=== PATIENT | male | born 1970 | race Caucasian/White ===

== ENCOUNTER 2019-09-19 14:42 | Emergency (ER) | payer SELFPAY ==
[2019-09-19] VITALS (7 sets, daily range): BP systolic 131–162; BP diastolic 86–102; PULSE 50–72; RESP 14–20; TEMP 36.8; O2SAT 97–100
--- NOTE | 2019-09-19 15:38 | DI.CT.S_ITS ---
PROCEDURE: CT HEAD/BRAIN WO CON INDICATIONS: DIZZY X 3 WEEKS TECHNIQUE: Noncontrast 4.5 mm thick angled axial sections acquired from the foramen magnum to the vertex, with coronal and sagittal reformats. For radiation dose reduction, the following was used: automated exposure control, adjustment of mA and/or kV according to patient size. COMPARISON: [facility], CT, HEAD WITHOUT CONTRAST, 12/19/2011, 16:29. FINDINGS: Image quality: Excellent. CSF spaces: Basal cisterns are patent. No extra-axial fluid collections. Ventricles are normal in size and shape. Brain: No midline shift. No intracranial masses or hemorrhage. Díaz-white matter interface is normal. Skull and face: Calvarium and visualized facial bones are intact, without suspicious lesions. Sinuses: Visualized sinuses and mastoids are clear. IMPRESSION: No CT evidence of acute intracranial pathology. Dictated by: Nolan Schwartz M.D. on 09/19/2019 at 15:57 Approved by: Nolan Schwartz M.D. on 09/19/2019 at 15:58
--- NOTE | 2019-09-19 15:43 | ED.DIZZY ---
HPI - Dizziness General Chief Complaint: Dizziness Stated Complaint: dizzy,feeling faint Time Seen by Provider: 09/19/19 14:55 Source: patient Mode of arrival: Ambulatory Limitations: no limitations History of Present Illness HPI Narrative: PATIENT IS A 49-year-old male who presents with dizziness ongoing for the last 3 weeks. He says every night when he lays down to go to bed and he turns over he gets extremely dizzy. He also says whenever he wakes up in the morning and stands up he is extremely dizzy and off balance. He is able to work he denies any nausea vomiting numbness tingling or weakness. He does say that his vision gets a little funny when this happens and his girlfriend see that his eyes shake. Today he said it was significantly worse. He denies any chest pain or heart palpitation MD complaint: dizziness and lightheadedness Timing: unsure Description: sense of movement Related Data Previous Rx's Medication Instructions Recorded meclizine 25 mg PO TID PRN #10 tab 09/19/19 Allergies Allergy/AdvReac Type Severity Reaction Status Date / Time clarithromycin [From BIAXIN] Allergy Unknown Verified 09/19/19 16:01 Review of Systems Review of Systems ROS Unobtainable: All systems reviewed & are unremarkable except as noted in HPI and below Constitutional Constitutional: Denies chills, Denies fever(s), Denies lethargy and Denies weakness Eyes Eyes: Reports as per HPI, Denies blurry vision and Denies diplopia ENT Ears, Nose, Mouth, and Throat: Denies change in voice, Reports dizziness, Denies neck pain and Denies sore throat Cardiovascular Cardiovascular: Denies chest pain, Denies irregular heart rhythm, Denies lightheadedness, Denies palpitations, Denies dyspnea, Denies dyspnea on exertion and Denies orthopnea Respiratory Respiratory: Denies cough, Denies dyspnea, Denies dyspnea on exertion and Denies wheezing Gastrointestinal Gastrointestinal: Denies abdominal pain, Denies change in bowel habits, Denies diarrhea, Denies nausea and Denies vomiting Musculoskeletal Musculoskeletal: Denies neck pain Integumentary/Breasts Skin/Breast: Denies pruritus, Denies erythema, Denies rash and Denies wounds Neurologic Neurologic: Reports dizziness and Denies weakness Endocrine Endocrine: Denies palpitations Allergic/Immunologic Allergic/Immunologic: Denies wheezing Patient History Medical History Tobacco abuse (Acute) Social History Smoking Status: Current every day smoker Smoking Status: Current every day smoker alcohol intake frequency: 3 or more drinks per day Exam Initial Vital Signs Initial Vital Signs: Vital Signs Temperature 98.2 F 09/19/19 14:45 Pulse Rate 72 09/19/19 14:45 Respiratory Rate 20 09/19/19 14:45 Blood Pressure 146/102 H 09/19/19 14:45 Pulse Oximetry 100 09/19/19 14:45 GENERAL: Well-appearing, well-nourished and in no acute distress. HEENT: Head atraumatic,EOMI, pupils reactive, no nystagmus face symmetric, moist mucous membranes CARDIOVASCULAR: Regular rate and rhythm without murmurs, rubs or gallops. RESPIRATORY: Breath sounds equal bilaterally, no wheezes rales or rhonchi. ABDOMEN: Soft, nontender. Normoactive bowel sounds all 4 quadrants. No guarding or rebound. EXTREMITIES: Normal range of motion, no clubbing or edema. Neurovascularly intact NEUROLOGICAL: Alert and oriented x4.Normal gait and speech. Cranial nerves II through XII grossly intact. Good haqyaf-lg-cslr, strength equal bilaterally, no dysarthria or aphasia, sensation in tact to soft touch bilaterally, no visual changes, no facial droop SKIN: Warm, dry, no laceration, no petechiae, no rashes or lesions. Scores NIH Stroke Scale Level of Conciousness: Alert, keenly responsive Ask month/age: Answers both questions correctly. Open/close eyes, close hand: Performs both tasks correctly Best gaze horizontal: Normal Visual suggs: No visual loss Facial palsy: Normal symetrical movement Left arm drift: No drift for full 10 sec Right arm drift: No drift for full 10 sec Left leg drift: No drift for full 10 sec Right leg drift: No drift for full 10 sec Limb ataxia: Absent Sensory on face/arms/legs: Normal, no sensory loss Best language: No aphasia, normal Dysarthria: Normal Extinction or inattention: No abnormality Total NIH Stroke scale score: 0 Course Orders Ordered: Discontinued Medications Sodium Chloride (Normal Saline 0.9%) 1,000 mls @ 1,000 mls/hr IV CONT JAMIE Last Infusion: 09/19/19 17:26 Dose: 0 mls/hr Documented by: Admin: 09/19/19 16:05 Dose: 1,000 mls/hr Documented by: SARAH Meclizine HCl (Antivert) 25 mg PO NOW ONE Stop: 09/19/19 15:38 Last Admin: 09/19/19 16:04 Dose: 25 mg Documented by: SARAH Vital Signs Vital signs: Vital Signs - 8 hr 09/19/19 14:45 Temperature 98.2 F Pulse Rate 72 Respiratory Rate 20 Blood Pressure 146/102 H Pulse Oximetry 100 MDM - Dizziness Lab Data Attestation: I reviewed the patient's lab results. Result diagrams: 09/19/19 15:00 09/19/19 15:00 Labs: Lab Results 09/19/19 09/19/19 Range/Units 15:00 15:00 WBC 8.5 (4.5-11.0) X10^3/uL RBC 5.00 (4.5-5.9) X10^6/uL Hgb 15.2 (13.5-17.5) g/dL Hct 44.8 (41-53) % MCV 89.6 (80-100) fL MCH 30.4 (26-34) PG MCHC 33.9 (30-36) % RDW 14.5 (11.6-14.8) % Plt Count 241 (150-400) X10^3/uL Neut % (Auto) 66.7 (50-75) % Lymph % (Auto) 21.4 L (25-40) % [place] % (Auto) 6.1 (3-14) % Eos % (Auto) 4.6 H (2-4) % Baso % (Auto) 1.2 (0-2) % Neut # (Auto) 5700 (7900-5378) /uL Lymph # (Auto) 1800 (3762-3660) /uL [place] # (Auto) 500 (0-900) /uL Eos # (Auto) 400 (0-450) /uL Baso # (Auto) 100 (0-100) /uL Sodium 137 (137-145) mmol/L Potassium 4.0 (3.4-5.1) mmol/L Chloride 105 (98-107) mmol/L Carbon Dioxide 25 (22-32) mmol/L BUN 15 (9-20) mg/dL Creatinine 1.18 (0.66-1.25) mg/dL Estimated GFR > 60.0 (>60) mL/min BUN/Creatinine Ratio 12.7 (6-22) Glucose 93 (70-100) mg/dL Calcium 10.1 (8.4-10.2) mg/dL Total Bilirubin 0.8 (0.2-1.3) mg/dL AST 28 (17-59) IU/L ALT 22 (<50) IU/L Alkaline Phosphatase 86 (38-126) U/L Troponin I < 0.012 (0.01-0.034) ng/mL Total Protein 8.0 (6.3-8.2) g/dL Albumin 4.7 (3.5-5.0) g/dL Globulin 3.3 (1.7-4.1) g/dL Albumin/Globulin Ratio 1.4 (1.0-2.8) Imaging Data CT scan - head: Radiologist's Impression: PROCEDURE: CT HEAD/BRAIN WO CON INDICATIONS: DIZZY X 3 WEEKS TECHNIQUE: Noncontrast 4.5 mm thick angled axial sections acquired from the foramen magnum to the vertex, with coronal and sagittal reformats. For radiation dose reduction, the following was used: automated exposure control, adjustment of mA and/or kV according to patient size. COMPARISON: [facility], CT, HEAD WITHOUT CONTRAST, 12/19/2011, 16:29. FINDINGS: Image quality: Excellent. CSF spaces: Basal cisterns are patent. No extra-axial fluid collections. Ventricles are normal in size and shape. Brain: No midline shift. No intracranial masses or hemorrhage. Díaz-white matter interface is normal. Skull and face: Calvarium and visualized facial bones are intact, without suspicious lesions. Sinuses: Visualized sinuses and mastoids are clear. IMPRESSION: No CT evidence of acute intracranial pathology. Dictated by: Nolan Schwartz M.D. on 09/19/2019 at 15:57 Approved by: Nolan Schwartz M.D. on 09/19/2019 at 15:58 ECG Data Attestation: I personally reviewed and interpreted this ECG as follows: Prior ECG tracings: available for review Interpretation: Normal sinus rhythm rate 70 p.r. interval [address] changes similar to previous MDM Narrative Medical decision making narrative: Patient is overall feeling much better after meclizine he is ambulatory with no difficulty. He says this is the best he has felt in weeks. His symptoms are consistent with vertigo, which are worse with movement better with being still. Discharge Plan Departure Patient Disposition: Home Clinical Impression: Vertigo Discharge Date/Time: 09/19/19 18:06 Instructions: DI for Vertigo Activity Restrictions/Additional Instructions: *You have been diagnosed with vertigo *What to do: Recommend resting and taking it easy. This should resolve on its own however you may need to see retail pos specialist. *Continue to take medications as directed Meclizine every 8 hours only if needed for dizziness this can cause drowsiness, do not work or drive while taking *Follow up with your primary care provider in 2-3 days *Return to ER if you should have worsening dizziness weakness numbness tingling visual changes or any new, worsening or concerning symptoms Prescriptions: New meclizine 25 mg tablet 25 mg PO TID PRN (Reason: dizziness) Qty: 10 RF: 0 Referrals: [facility] [Outside]
[2019-09-19 16:04] LABS: Add Manual Diff / Slide Review NO; Basophils Absolute Auto 100 /uL (0-100); Basophils Percent Auto 1.2 % (0-2); Eosinophils Absolute Auto 400 /uL (0-450); Eosinophils Percent Auto 4.6 % (2-4); Hematocrit 44.8 % (41-53); Hemoglobin 15.2 g/dL (13.5-17.5); Lymphocytes Absolute Auto 1800 /uL (1100-4500); Lymphocytes Percent Auto 21.4 % (25-40); Mean Corpuscular HGB Conc 33.9 % (30-36); Mean Corpuscular Hemoglobin 30.4 PG (26-34); Mean Corpuscular Volume 89.6 fL (80-100); Monocytes Absolute Auto 500 /uL (0-900); Monocytes Percent Auto 6.1 % (3-14); Neutrophils Absolute Auto 5700 /uL (1500-7000); Neutrophils Percent Auto 66.7 % (50-75); Platelet Count 241 X10^3/uL (150-400); Red Cell Distribution Width 14.5 % (11.6-14.8); White Blood Cell Count 8.5 X10^3/uL (4.5-11.0)
[2019-09-19] MEDS: MECLIZINE HCL 12.5 MG TABLET 25 MG PO (16:04)
[2019-09-19] MEDS: SODIUM CHLORIDE 0.9% 1,000 ML 1000 ML IV (16:05)
[2019-09-19 16:10] LABS: Alanine Aminotransferase 22 IU/L (<50); Albumin 4.7 g/dL (3.5-5.0); Albumin Globulin Ratio 1.4 (1.0-2.8); Alkaline Phosphatase 86 U/L (38-126); Aspartate Aminotransferase 28 IU/L (17-59); BUN Creatinine Ratio 12.7 (6-22); Bilirubin Total 0.8 mg/dL (0.2-1.3); Blood Urea Nitrogen 15 mg/dL (9-20); Calcium 10.1 mg/dL (8.4-10.2); Carbon Dioxide 25 mmol/L (22-32); Chloride 105 mmol/L (98-107); Estimated Glomerular Filt Rate > 60.0 mL/min (>60); Globulin 3.3 g/dL (1.7-4.1); Glucose 93 mg/dL (70-100); HEMOLYSIS < 15 (0-50); Sodium 137 mmol/L (137-145)
[2019-09-19 16:21] LABS: Troponin I < 0.012 ng/mL (0.01-0.034)
--- NOTE | 2019-09-19 17:37 | PC.NURSE ---
pt states he was lifting an 85lb bag for work and he sat it down and turned, then passed out. pt states he's has dizziness on and off for 3 weeks.
--- NOTE | 2019-09-19 17:42 | PC.NURSE ---
assisted Pt. with stand by ambulation trail. NO assisted devices needed. Pt. denies pain and dizziness. Pt, back in room, call light in reach. RN notified. O2 stat- 100% RA and Pulse at 48.
== END 2019-09-19 18:06 | disposition home or self-care (01) ==
PROVIDERS: Emergency Provider Emergency Medicine
DX: R42 Dizziness and giddiness (principal)
CPT/HCPCS: 36415; 70450; 80053; 84484; 85025; 93005; 96360; 99284; 99285

== ENCOUNTER 2020-04-13 16:01 | Emergency (ER) | payer SELFPAY ==
[2020-04-13 16:06] VITALS: BP 139/85; PULSE 86; RESP 16; TEMP 36.7; O2SAT 99; BMI 26.2
--- NOTE | 2020-04-13 16:20 | DI.RAD.S_ITS ---
PROCEDURE: XR LUMBAR SPINE 2-3V INDICATIONS: fall on ice on sat TECHNIQUE: 3 views of the lumbar spine were acquired. COMPARISON: None. FINDINGS: Bones: 5 [id number] vertebrae are present. There is normal bony alignment. No vertebral body compression fractures. No suspicious bony lesions. Degenerative disc disease is moderate at L4-5 and [id number] at L5-S1. Pars interarticularis defects are suspected at L5, and there is slight anterolisthesis of L5 on S1. Soft tissues: Overlying bowel gas pattern is normal. No suspicious soft tissue calcifications. IMPRESSION: No acute compression fracture found. 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 The anterolisthesis of L5 on S1 likely is related to the pars defects. Spinal and foraminal stenosis at L4-5 and L5-S1 may be present related to both degeneration and the pars defects. Elective follow-up orthopedic consultation may be warranted. Dictated by: Shantanu Alfredo M.D. on 04/13/2020 at 16:46 Approved by: Shantanu Alfredo M.D. on 04/13/2020 at 16:47
[2020-04-13 17:34] VITALS: BP 126/86; PULSE 64; O2SAT 98
--- NOTE | 2020-04-13 19:20 | ED_ITS ---
HPI - Back Pain/Injury General Chief Complaint: Back Pain/Injury Stated Complaint: BACK PAIN Time Seen by Provider: 04/13/20 18:57 Source: patient Mode of arrival: Ambulatory Limitations: no limitations History of Present Illness HPI Narrative: 49-year-old male who approximately 1 week ago fell on ice landing on the right side of his back. He states that he had no other injuries from the event. He thought that potentially his symptoms were improving however they have continued and actually worsened this morning. He states that it hurts on his right flank especially when he coughs. Tract him ibuprofen at home with minimal improvement. Related Data Previous Rx's Medication Instructions Recorded meclizine 25 mg PO TID PRN #10 tab 09/19/19 cyclobenzaprine 10 mg PO TID PRN #14 tab 04/13/20 hydrocodone-acetaminophen [[place]] 1 tab PO Q4-6H PRN #10 tab 04/13/20 Allergies Allergy/AdvReac Type Severity Reaction Status Date / Time clarithromycin [From BIAXIN] Allergy Unknown Verified 04/13/20 16:08 Review of Systems Constitutional Constitutional: Denies fatigue and Denies headache(s) ENT Ears, Nose, Mouth, and Throat: Denies headache(s) and Denies neck pain Cardiovascular Cardiovascular: Denies chest pain and Denies dyspnea Respiratory Respiratory: Denies dyspnea Gastrointestinal Gastrointestinal: Denies abdominal pain, Denies nausea and Denies vomiting Musculoskeletal Musculoskeletal: Reports back pain and Denies neck pain Integumentary/Breasts Skin/Breast: Denies lesions and Denies rash Neurologic Neurologic: Denies behavioral changes and Denies headache(s) Psychiatric Psychiatric: Denies behavioral changes Endocrine Endocrine: Denies fatigue Hematologic/Lymphatic On Anticoagulants: No Allergic/Immunologic Allergic/Immunologic: Denies urticaria Patient History Medical History Tobacco abuse Social History Smoking Status: Current every day smoker Smoking Status: Current every day smoker alcohol intake frequency: 3 or more drinks per day Substance Use Type: marijuana Exam Initial Vital Signs Initial Vital Signs: Vital Signs Temperature 98.1 F 04/13/20 16:06 Pulse Rate 86 04/13/20 16:06 Respiratory Rate 16 04/13/20 16:06 Blood Pressure 139/85 04/13/20 16:06 Pulse Oximetry 99 04/13/20 16:06 Const General: cooperative and comfortable Limitations: mental status not altered HENMT Head: normal to inspection and normocephalic Chest Chest: No crepitus and No tenderness Resp Effort & Inspection: normal respiratory effort Auscultation: clear to auscultation bilaterally Cardio Rate: regular rate GI Inspection: non-distended Palpation: No soft Back/Spine/Pelvis Cervical Spine: No cervical spinal tenderness Thoracic/Lumbar Spine: paraspinal tenderness (Right-sided lumbar/paraspinal and lower ribs), No thoracic spinal tenderness and No lumbar spinal tenderness Skin Lesions: no lesions Rashes: no rashes Neuro General: patient alert and patient awake Cognition: normal cognition Speech: speech normal Extrem General: capillary refill normal Psych Appearance: grossly normal and well kempt Course Orders Ordered: Discontinued Medications Hydromorphone HCl (Hydromorphone 1 Mg Inj) 1 mg IM NOW ONE Stop: 04/13/20 19:21 Last Admin: 04/13/20 19:26 Dose: 1 mg Documented by: ANGLE Ketorolac Tromethamine (Ketorolac 60 Mg/2 Ml Vial) 30 mg IM NOW ONE Stop: 04/13/20 19:21 Last Admin: 04/13/20 19:25 Dose: 30 mg Documented by: ANGLE Vital Signs Vital signs: Vital Signs - 8 hr 04/13/20 19:37 Pulse Rate 64 Respiratory Rate 16 Blood Pressure 143/87 H Pulse Oximetry 98 MDM - Back Pain/Injury Imaging Data Lumbar spine x-ray: Radiologist's Impression: [address] [id number] ReportSigned Patient: Yury Lopez JR JMR#: [id number]: 1970Acct:[id number]/Sex: 49 / MDate of Service: 04/13/20Loc: EDAccessio n Number: [id number] Procedure: XR lumbar spine 2-3V Ordering Provider: Savannah Lovelace D.O. PROCEDURE: XR LUMBAR SPINE 2-3V INDICATIONS: fall on ice on sat TECHNIQUE: 3 views of the lumbar spine were acquired. COMPARISON: None. FINDINGS: Bones: 5 [id number]-jrf-gyywdoo vertebrae are present. There is normal bony alignment. No vertebral body compression fractures. No suspicious bony lesions. Degenerative disc disease is moderate at L4-5 and asoq-af-yncjmrik at L5-S1. Pars interarticularis defects are suspected at L5, and there is slight anterolisthesis of L5 on S1. Soft tissues: Overlying bowel gas pattern is normal. No suspicious soft tissue calcifications. IMPRESSION: No acute compression fracture found. 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 The anterolisthesis of L5 on S1 likely is related to the pars defects. Spinal and foraminal stenosis at L4-5 and L5-S1 may be present related to both degeneration and the pars defects. Elective follow-up orthopedic consultation may be warranted. Dictated by: Shantanu Alfredo M.D. on 04/13/2020 at 16:46 Approved by: Shantanu Alfredo M.D. on 04/13/2020 at 16:47 [facility] Narrative Medical decision making narrative: Lumbar spine x-rays are negative however the patient's symptoms are right-sided paraspinal and over the 11th and 12th ribs. I suspect this is a musculoskeletal etiology. He potentially could have rib fractures. He is not in respiratory distress and his lungs are clear bilateral. I feel we can hold on a chest x-ray. Discussed the symptoms with him. We did discuss rib fractures versus bruised ribs. He has no abdominal tenderness. He has 1 week out from the injury. Feel we can hold on a CT scan his abdomen for now. He was given return precautions and follow-up instructions. He expressed understanding and agreement. Discharge Plan Departure Patient Disposition: Home Clinical Impression: Right-sided thoracic back pain, Rib pain on right side Instructions: DI for Rib Fracture, DI for Muscle Strain Activity Restrictions/Additional Instructions: Based on your exam today I suspect that you have a combination of both muscle spasms and also a bruised/fractured rib. Take the medication as directed. Unfortunately bruise/fractured ribs are very uncomfortable even with movement and breathing. You can put pressure over this area if you have to cough is this may help some of your symptoms. Return to the emergency department for any new or worsening symptoms. Recommend you contact the health water resource engineering specialist [phone]. This individual can help you establish a primary doctor here in the area. Prescriptions: New cyclobenzaprine 10 mg tablet 10 mg PO TID PRN (Reason: muscle spasm) Qty: 14 RF: 0 hydrocodone-acetaminophen [[place]] 5-325 mg tablet 1 tab PO Q4-6H PRN (Reason: pain) Qty: 10 RF: 0 No Action meclizine 25 mg tablet 25 mg PO TID PRN (Reason: dizziness) Qty: 10 RF: 0
[2020-04-13] MEDS: KETOROLAC 60 MG/2 ML VIAL 30 MG IM (19:25)
[2020-04-13] MEDS: HYDROMORPHONE 1 MG INJ IM (19:26)
[2020-04-13 19:37] VITALS: BP 143/87; PULSE 64; RESP 16; O2SAT 98
== END 2020-04-13 19:38 | disposition home or self-care (01) ==
PROVIDERS: Emergency Provider Emergency Medicine
DX: M54.6 Pain in thoracic spine (principal); R07.81 Pleurodynia; W00.0XXA Fall on same level due to ice and snow, initial encounter
CPT/HCPCS: 72100; 96372; 99281; 99283; J1170; J1885

== ENCOUNTER → 2020-06-15 16:52 | Outpatient (CLI) | payer OTHER, SELFPAY ==
[2020-06-15 17:20] LABS: COVID19 -Nasal RAPID Negative (Negative)
== END ==
PROVIDERS: Visit Provider Physician Assistant
DX: Z20.822 Contact with and (suspected) exposure to COVID-19 (principal)
CPT/HCPCS: 87635

== ENCOUNTER → 2020-06-15 17:14 | Outpatient (CLI) | payer SELFPAY ==
[2020-06-15 17:36] LABS: Add Manual Diff / Slide Review NO; Basophils Absolute Auto 100 /uL (0-100); Basophils Percent Auto 0.8 % (0-2); Eosinophils Absolute Auto 300 /uL (0-450); Eosinophils Percent Auto 4.1 % (2-4); Hematocrit 44.2 % (41-53); Hemoglobin 14.9 g/dL (13.5-17.5); Lymphocytes Absolute Auto 1400 /uL (1100-4500); Lymphocytes Percent Auto 18.9 % (25-40); Mean Corpuscular HGB Conc 33.7 % (30-36); Mean Corpuscular Hemoglobin 30.9 PG (26-34); Mean Corpuscular Volume 91.7 fL (80-100); Monocytes Absolute Auto 400 /uL (0-900); Monocytes Percent Auto 5.8 % (3-14); Neutrophils Absolute Auto 5300 /uL (1500-7000); Neutrophils Percent Auto 70.4 % (50-75); Platelet Count 211 X10^3/uL (150-400); Red Blood Cell Count 4.82 X10^6/uL (4.5-5.9); Red Cell Distribution Width 13.9 % (11.6-14.8); White Blood Cell Count 7.6 X10^3/uL (4.5-11.0)
[2020-06-15 17:49] LABS: Alanine Aminotransferase 23 IU/L (<50); Albumin 4.2 g/dL (3.5-5.0); Albumin Globulin Ratio 1.3 (1.0-2.8); Alkaline Phosphatase 80 U/L (38-126); Aspartate Aminotransferase 23 IU/L (17-59); BUN Creatinine Ratio 13.9 (6-22); Bilirubin Total 0.4 mg/dL (0.2-1.3); Blood Urea Nitrogen 15 mg/dL (9-20); Calcium 9.5 mg/dL (8.4-10.2); Carbon Dioxide 28 mmol/L (22-32); Chloride 105 mmol/L (98-107); Estimated Glomerular Filt Rate > 60.0 mL/min (>60); Globulin 3.2 g/dL (1.7-4.1); Glucose 104 mg/dL (70-100); HEMOLYSIS < 15 (0-50); Lipase 92 U/L (23-300); Potassium 4.1 mmol/L (3.4-5.1); Sodium 139 mmol/L (137-145); Total Protein 7.4 g/dL (6.3-8.2)
== END ==
PROVIDERS: Referring Provider Physician Assistant; Visit Provider Physician Assistant
DX: R19.7 Diarrhea, unspecified (principal)
CPT/HCPCS: 36415; 80053; 83690; 85025

== ENCOUNTER → 2020-10-08 14:00 | Outpatient (CLI) | payer BC, SELFPAY ==
[2020-10-08 14:25] LABS: COVID19 -Nasal RAPID Negative (Negative)
== END ==
PROVIDERS: Visit Provider Physician Assistant
DX: R11.2 Nausea with vomiting, unspecified (principal); R19.7 Diarrhea, unspecified; R50.9 Fever, unspecified; Z20.822 Contact with and (suspected) exposure to COVID-19
CPT/HCPCS: 87635

== ENCOUNTER 2020-12-31 14:15 | Emergency (ER) | payer BC, SELFPAY ==
[2020-12-31] VITALS (8 sets, daily range): BP systolic 143–159; BP diastolic 90–103; PULSE 70–92; RESP 16–17; TEMP 36.9; O2SAT 94–100; BMI 21.2
--- NOTE | 2020-12-31 14:25 | PC.NURSE ---
Patient reports pressure/pain in left ear
[2020-12-31] MEDS: SODIUM CHLORIDE 0.9% 1,000 ML 1000 ML IV (14:40)
[2020-12-31] MEDS: ONDANSETRON 4 MG/2 ML INJ IV (14:40)
[2020-12-31 14:46] LABS: Add Manual Diff / Slide Review NO; Basophils Absolute Auto 100 /uL (0-100); Basophils Percent Auto 0.8 % (0-2); Eosinophils Absolute Auto 300 /uL (0-450); Eosinophils Percent Auto 3.7 % (2-4); Hematocrit 45.7 % (41-53); Hemoglobin 15.2 g/dL (13.5-17.5); Lymphocytes Absolute Auto 1500 /uL (1100-4500); Lymphocytes Percent Auto 19.7 % (25-40); Mean Corpuscular HGB Conc 33.2 % (30-36); Mean Corpuscular Hemoglobin 30.5 PG (26-34); Mean Corpuscular Volume 91.8 fL (80-100); Monocytes Absolute Auto 300 /uL (0-900); Monocytes Percent Auto 4.6 % (3-14); Neutrophils Absolute Auto 5400 /uL (1500-7000); Neutrophils Percent Auto 71.2 % (50-75); Platelet Count 215 X10^3/uL (150-400); Red Blood Cell Count 4.98 X10^6/uL (4.5-5.9); Red Cell Distribution Width 14.3 % (11.6-14.8); White Blood Cell Count 7.6 X10^3/uL (4.5-11.0)
[2020-12-31 14:51] LABS: Alanine Aminotransferase 27 IU/L (<50); Albumin 4.6 g/dL (3.5-5.0); Albumin Globulin Ratio 1.4 (1.0-2.8); Alkaline Phosphatase 73 U/L (38-126); Aspartate Aminotransferase 27 IU/L (17-59); BUN Creatinine Ratio 13.9 (6-22); Bilirubin Total 0.6 mg/dL (0.2-1.3); Blood Urea Nitrogen 15 mg/dL (9-20); Calcium 9.2 mg/dL (8.4-10.2); Carbon Dioxide 22 mmol/L (22-32); Chloride 105 mmol/L (98-107); Estimated Glomerular Filt Rate > 60.0 mL/min (>60); Globulin 3.3 g/dL (1.7-4.1); Glucose 152 mg/dL (70-100); HEMOLYSIS 26 (0-50); Sodium 138 mmol/L (137-145); Total Protein 7.9 g/dL (6.3-8.2)
--- NOTE | 2020-12-31 15:00 | DI.RAD.S_ITS ---
PROCEDURE: XR CHEST 2V INDICATIONS: Dizziness, fever, chills TECHNIQUE: 2 views of the chest were acquired. COMPARISON: [facility], , CHEST 1 VIEW, 01/03/2015, 15:47. FINDINGS: Surgical changes and devices: None. Lungs and pleura: Lungs are clear. No pleural effusions or pneumothorax. Mediastinum: Mediastinal contours are normal. Heart size is normal. Bones and chest wall: No suspicious bony abnormalities. Soft tissues appear unremarkable. IMPRESSION: No acute disease. Dictated by: Skip Mancini M.D. on 12/31/2020 at 16:34 Approved by: Skip Mancini M.D. on 12/31/2020 at 16:40
[2020-12-31 15:03] LABS: Troponin I < 0.012 ng/mL (0.01-0.034)
--- NOTE | 2020-12-31 15:03 | ED_ITS ---
HPI - Dizziness <Randolph Hernandez PA-C - Last Filed: 12/31/20 16:54> General Chief Complaint: Dizziness Stated Complaint: Dizzy, nausea x 3 days Time Seen by Provider: 12/31/20 14:24 Source: patient Mode of arrival: Ambulatory History of Present Illness HPI Narrative: 50-year-old male with no reported past medical history presents to the ED with 3 days of dizziness, nausea, vomiting. Patient states that he started feeling sick with fever, chills, nausea, vomiting, dizziness. Patient describes the dizziness as the room swelling around him, provoked by movement. Patient denies chest pain, shortness of breath, cough, abdominal pain, dysuria, syncope. Patient is unvaccinated for COVID-19. Patient endorses similar symptoms once 2 years ago, which was diagnosed as vertigo, resolved after taking vertigo medications. Related Data Previous Rx's Medication Instructions Recorded meclizine 12.5 mg tablet 25 mg PO TID PRN 7 Days tab 12/31/20 sulfamethoxazole 800 1 tab PO BID 5 Days #10 tab 12/31/20 mg-trimethoprim 160 mg tablet (Bactrim DS) Allergies Allergy/AdvReac Type Severity Reaction Status Date / Time clarithromycin [From BIAXIN] Allergy Mild Rash Verified 12/31/20 14:30 Review of Systems <Randolph Hernandez PA-C - Last Filed: 12/31/20 16:54> Constitutional Constitutional: Reports chills, Denies fatigue, Reports fever(s), Denies frequent falls, Denies lethargy and Denies weakness Eyes Eyes: Denies change in vision, Denies eye discharge, Denies irritation and Denies loss of vision ENT Ears, Nose, Mouth, and Throat: Denies change in voice, Reports dizziness, Denies neck pain, Denies sore throat and Denies throat swelling Cardiovascular Cardiovascular: Denies chest pain, Denies irregular heart rhythm, Denies lightheadedness, Denies palpitations, Denies dyspnea, Denies dyspnea on exertion and Denies orthopnea Respiratory Respiratory: Denies cough, Denies dyspnea, Denies dyspnea on exertion and Denies wheezing Gastrointestinal Gastrointestinal: Denies abdominal pain, Denies change in bowel habits, Denies diarrhea, Reports nausea and Reports vomiting Musculoskeletal Musculoskeletal: Denies neck pain and Denies numbness Integumentary/Breasts Skin/Breast: Denies pruritus, Denies erythema, Denies rash and Denies wounds Neurologic Neurologic: Denies behavioral changes, Denies confusion, Reports dizziness, Denies frequent falls, Denies loss of vision, Denies numbness and Denies weakness Psychiatric Psychiatric: Denies anxiety, Denies behavioral changes, Denies confusion, Denies depression, Denies homicidal ideation and Denies suicidal ideation Endocrine Endocrine: Denies fatigue, Denies flushing and Denies palpitations Hematologic/Lymphatic Hematologic/Lymphatic: Denies easy bruising Allergic/Immunologic Allergic/Immunologic: Denies urticaria, Denies throat swelling and Denies wheezing Patient History <Randolph Hernandez PA-C - Last Filed: 12/31/20 16:54> Medical History Normal exam Tobacco abuse Social History Smoking Status: Current every day smoker Smoking Status: Current every day smoker alcohol intake frequency: 3 or more drinks per day Substance Use Type: marijuana Exam <Randolph Hernandez PA-C - Last Filed: 12/31/20 16:54> Narrative Exam Narrative: Physical exam benign. Lungs bilaterally clear to auscultation. Regular rate and rhythm. Abdomen soft, nondistended, nontender to palpation. No CVA tenderness. PERRLA. CN 1 through 12 intact. Gait normal. Negative pronator drift, negative rapid alternating movements, negative [id number]. Patient is neurologically intact. Initial Vital Signs Initial Vital Signs: Vital Signs Temperature 98.5 F 12/31/20 14:25 Pulse Rate 92 H 12/31/20 14:25 Respiratory Rate 17 12/31/20 14:25 Blood Pressure 159/103 H 12/31/20 14:25 Pulse Oximetry 99 12/31/20 14:25 Const General: cooperative HENMT Head: normocephalic and atraumatic Ears: external ears normal and TM's normal bilaterally Nose: external nose normal and No nasal discharge Face and sinus: sinuses nontender, face symmetric, no sinus tenderness and No dry mucous membranes Mouth: oral mucosae normal and moist mucous membranes Teeth and gingiva: dentition normal Throat: tonsils normal and uvula midline Eyes General: appearance normal, both eyes and all related structures Eyelids: eyelids normal Conjunctivae: conjunctivae normal Sclera: sclerae normal Pupils: PERRL EOM: EOM intact bilaterally Neck Neck: normal visual inspection, trachea midline, No lymphadenopathy, No midline deformity and No JVD Lymphatic: No lymphedema Chest Chest: normal inspection of the chest Resp Effort & Inspection: normal respiratory effort, able to speak in complete sentences, no respiratory distress and no use of accessory muscles Auscultation: clear to auscultation bilaterally, no rales, no rhonchi and no wh eezes Cardio Rate: regular rate Rhythm: regular rhythm Heart Sounds: no click, no gallops, no murmurs and no rubs Pulses: normal peripheral pulses GI Inspection: non-distended Palpation: soft, no hepatosplenomegaly, No guarding, No pulsatile mass and No tender Auscultation: normal bowel sounds Back/Spine/Pelvis Back: No CVA tenderness Cervical Spine: cervical ROM normal and No pain with cervical ROM Thoracic/Lumbar Spine: thoracic and lumbar spine normal to inspection Skin General: no rashes or lesions noted, No jaundice and No petechiae Neuro General: patient alert, patient oriented x3, gait normal and no focal motor deficits Speech: speech normal Extrem General: full ROM, no clubbing, cyanosis or edema, no pedal edema and no calf tenderness Psych Appearance: well kempt Mental Status: mental status grossly normal Attitude: cooperative Thought Content: normal and suicidality Judgment: judgment good <Bret Patel MD - Last Filed: 12/31/20 17:37> Initial Vital Signs Initial Vital Signs: Vital Signs Temperature 98.5 F 12/31/20 14:25 Pulse Rate 92 H 12/31/20 14:25 Respiratory Rate 17 12/31/20 14:25 Blood Pressure 159/103 H 12/31/20 14:25 Pulse Oximetry 99 12/31/20 14:25 Course <Randolph Hernandez PA-C - Last Filed: 12/31/20 16:54> Course Course Narrative: Patient's workup negative for any acute conditions. Patient's symptoms likely due to peripheral vertigo versus viral infection. Patient's symptoms improved with meclizine. Will discharge patient home with ED return precautions, prescription for meclizine. Orders Ordered: ED Orders 12/31/20 14:30 COVID19 -Nasal swab/Pre-Proc Stat Complete Blood Count AUTO DIFF Stat Comprehensive Metabolic Panel Stat Troponin I Stat EKG-12 Lead Stat 12/31/20 15:00 XR chest 2V Stat Discontinued Medications Sodium Chloride (Normal Saline 0.9%) 1,000 mls @ 1,000 mls/hr IV BOLUS ONE Stop: 12/31/20 15:31 Last Infusion: 12/31/20 16:28 Dose: 0 mls/hr Documented by: Admin: 12/31/20 14:40 Dose: 1,000 mls/hr Documented by: RONAK Meclizine HCl (Meclizine Hcl 12.5 Mg Tablet) 25 mg PO NOW ONE Stop: 12/31/20 15:01 Last Admin: 12/31/20 15:04 Dose: 25 mg Documented by: BEBETO Ondansetron HCl (Ondansetron 4 Mg/2 Ml Inj) 4 mg IV NOW ONE Stop: 12/31/20 14:33 Last Admin: 12/31/20 14:40 Dose: 4 mg Documented by: RONAK Vital Signs Vital signs: Vital Signs - 8 hr 12/31/20 14:25 12/31/20 14:48 12/31/20 15:00 Temperature 98.5 F Pulse Rate 92 H 87 88 Respiratory Rate 17 Blood Pressure 159/103 H 143/94 H Pulse Oximetry 99 94 99 12/31/20 15:30 12/31/20 16:00 12/31/20 16:27 Temperature Pulse Rate 76 71 70 Respiratory Rate Blood Pressure 152/93 H 156/92 H Pulse Oximetry 99 97 100 12/31/20 16:29 12/31/20 16:30 Temperature Pulse Rate 72 80 Respiratory Rate 16 Blood Pressure 149/90 H Pulse Oximetry 100 98 <Bret Patel MD - Last Filed: 12/31/20 17:37> Orders Ordered: ED Orders 12/31/20 14:30 COVID19 -Nasal swab/Pre-Proc Stat Complete Blood Count AUTO DIFF Stat Comprehensive Metabolic Panel Stat Troponin I Stat EKG-12 Lead Stat 12/31/20 15:00 XR chest 2V Stat Discontinued Medications Sodium Chloride (Normal Saline 0.9%) 1,000 mls @ 1,000 mls/hr IV BOLUS ONE Stop: 12/31/20 15:31 Last Infusion: 12/31/20 16:28 Dose: 0 mls/hr Documented by: Admin: 12/31/20 14:40 Dose: 1,000 mls/hr Documented by: RONAK Meclizine HCl (Meclizine Hcl 12.5 Mg Tablet) 25 mg PO NOW ONE Stop: 12/31/20 15:01 Last Admin: 12/31/20 15:04 Dose: 25 mg Documented by: BEBETO Ondansetron HCl (Ondansetron 4 Mg/2 Ml Inj) 4 mg IV NOW ONE Stop: 12/31/20 14:33 Last Admin: 12/31/20 14:40 Dose: 4 mg Documented by: RONAK Vital Signs Vital signs: Vital Signs - 8 hr 12/31/20 14:25 12/31/20 14:48 12/31/20 15:00 Temperature 98.5 F Pulse Rate 92 H 87 88 Respiratory Rate 17 Blood Pressure 159/103 H 143/94 H Pulse Oximetry 99 94 99 12/31/20 15:30 12/31/20 16:00 12/31/20 16:27 Temperature Pulse Rate 76 71 70 Respiratory Rate Blood Pressure 152/93 H 156/92 H Pulse Oximetry 99 97 100 12/31/20 16:29 12/31/20 16:30 Temperature Pulse Rate 72 80 Respiratory Rate 16 Blood Pressure 149/90 H Pulse Oximetry 100 98 MDM - Dizziness <Randolph Hernandez PA-C - Last Filed: 12/31/20 16:54> Lab Data Lab results narrative: Labs within normal limits Result diagrams: 12/31/20 14:30 12/31/20 14:30 Labs: Lab Results 12/31/20 12/31/20 12/31/20 Range/Units 14:30 14:30 14:30 WBC 7.6 (4.5-11.0) X10^3/uL RBC 4.98 (4.5-5.9) X10^6/uL Hgb 15.2 (13.5-17.5) g/dL Hct 45.7 (41-53) % MCV 91.8 (80-100) fL MCH 30.5 (26-34) PG MCHC 33.2 (30-36) % RDW 14.3 (11.6-14.8) % Plt Count 215 (150-400) X10^3/uL Neut % (Auto) 71.2 (50-75) % Lymph % (Auto) 19.7 L (25-40) % Payne % (Auto) 4.6 (3-14) % Eos % (Auto) 3.7 (2-4) % Baso % (Auto) 0.8 (0-2) % Neut # (Auto) 5400 (6073-3581) /uL Lymph # (Auto) 1500 (6229-2772) /uL Payne # (Auto) 300 (0-900) /uL Eos # (Auto) 300 (0-450) /uL Baso # (Auto) 100 (0-100) /uL Sodium 138 (137-145) mmol/L Potassium 4.0 (3.4-5.1) mmol/L Chloride 105 (98-107) mmol/L Carbon Dioxide 22 (22-32) mmol/L BUN 15 (9-20) mg/dL Creatinine 1.08 (0.66-1.25) mg/dL Estimated GFR > 60.0 (>60) mL/min BUN/Creatinine Ratio 13.9 (6-22) Glucose 152 H (70-100) mg/dL Calcium 9.2 (8.4-10.2) mg/dL Total Bilirubin 0.6 (0.2-1.3) mg/dL AST 27 (17-59) IU/L ALT 27 (<50) IU/L Alkaline Phosphatase 73 (38-126) U/L Troponin I < 0.012 (0.01-0.034) ng/mL Total Protein 7.9 (6.3-8.2) g/dL Albumin 4.6 (3.5-5.0) g/dL Globulin 3.3 (1.7-4.1) g/dL Albumin/Globulin Ratio 1.4 (1.0-2.8) SARS-CoV-2 (PCR) Negative (Negative) Urine Dip Bedside Urine Glucose Negative Bedside Urine Bilirubin - Negative Bedside Urine Ketone - Negative Urine Specific [place] 1.020 Bedside Urine Occult Blood - Negative Bedside Urine pH 6.5 Bedside Urine Protein - Negative Bedside Urine Urobilinogen - Negative Bedside Urine Nitrite - Negative Bedside Urine Leukocytes - Negative Esterase Imaging Data Chest x-ray: Radiologist's Impression: PROCEDURE:? XR CHEST 2V ? INDICATIONS:? Dizziness, fever, chills ? TECHNIQUE:? 2 views of the chest were acquired.? ? COMPARISON:? [facility], CR, CHEST 1 VIEW, 01/03/2015, 15:47. ? FINDINGS:? ? Surgical changes and devices:? None.? ? Lungs and pleura:? Lungs are clear.? No pleural effusions or pneumothorax.? ? Mediastinum:? Mediastinal contours are normal.? Heart size is normal.? ? Bones and chest wall:? No suspicious bony abnormalities.? Soft tissues appear unremarkable.? ? IMPRESSION:? No acute disease. ? ? Dictated by: Skip Mancini M.D. on 12/31/2020 at 16:34 ? ? Approved by: Skip Mancini M.D. on 12/31/2020 at 16:40 ? ECG Data Interpretation: Normal sinus rhythm with sinus arrhythmia. No acute ST-T changes. No axis deviation. MDM Narrative Medical decision making narrative: 50-year-old male with no reported past medical history presents to the ED with 3 days of dizziness, nausea, vomiting. Concern for ACS versus arrhythmia versus peripheral vertigo versus dehydration versus viral syndrome. Will order labs, chest x-ray, UA, EKG, troponin. Will give Zofran, meclizine, IV fluids with symptoms. Will reassess. <Bret Patel MD - Last Filed: 12/31/20 17:37> Lab Data Labs: Lab Results 12/31/20 12/31/20 12/31/20 Range/Units 14:30 14:30 14:30 WBC 7.6 (4.5-11.0) X10^3/uL RBC 4.98 (4.5-5.9) X10^6/uL Hgb 15.2 (13.5-17.5) g/dL Hct 45.7 (41-53) % MCV 91.8 (80-100) fL MCH 30.5 (26-34) PG MCHC 33.2 (30-36) % RDW 14.3 (11.6-14.8) % Plt Count 215 (150-400) X10^3/uL Neut % (Auto) 71.2 (50-75) % Lymph % (Auto) 19.7 L (25-40) % Payne % (Auto) 4.6 (3-14) % Eos % (Auto) 3.7 (2-4) % Baso % (Auto) 0.8 (0-2) % Neut # (Auto) 5400 (2219-2477) /uL Lymph # (Auto) 1500 (5331-5400) /uL Payne # (Auto) 300 (0-900) /uL Eos # (Auto) 300 (0-450) /uL Baso # (Auto) 100 (0-100) /uL Sodium 138 (137-145) mmol/L Potassium 4.0 (3.4-5.1) mmol/L Chloride 105 (98-107) mmol/L Carbon Dioxide 22 (22-32) mmol/L BUN 15 (9-20) mg/dL Creatinine 1.08 (0.66-1.25) mg/dL Estimated GFR > 60.0 (>60) mL/min BUN/Creatinine Ratio 13.9 (6-22) Glucose 152 H (70-100) mg/dL Calcium 9.2 (8.4-10.2) mg/dL Total Bilirubin 0.6 (0.2-1.3) mg/dL AST 27 (17-59) IU/L ALT 27 (<50) IU/L Alkaline Phosphatase 73 (38-126) U/L Troponin I < 0.012 (0.01-0.034) ng/mL Total Protein 7.9 (6.3-8.2) g/dL Albumin 4.6 (3.5-5.0) g/dL Globulin 3.3 (1.7-4.1) g/dL Albumin/Globulin Ratio 1.4 (1.0-2.8) SARS-CoV-2 (PCR) Negative (Negative) Urine Dip Bedside Urine Glucose Negative Bedside Urine Bilirubin - Negative Bedside Urine Ketone - Negative Urine Specific [place] 1.020 Bedside Urine Occult Blood - Negative Bedside Urine pH 6.5 Bedside Urine Protein - Negative Bedside Urine Urobilinogen - Negative Bedside Urine Nitrite - Negative Bedside Urine Leukocytes - Negative Esterase Discharge Plan Departure Patient Disposition: Home Clinical Impression: Dizziness Instructions: DI for Vertigo Activity Restrictions/Additional Instructions: You were evaluated in the ED today for dizziness. Your lab results, EKG, chest x-ray urinalysis and COVID test were all normal. Your symptoms are likely due to either a viral infection or due to vertigo. You were given meclizine which improved your symptoms. You can continue to take meclizine for the next few days fair symptoms. Return to the ED if your symptoms worsen, we were unable to keep down any fluids or solids. Prescriptions: New sulfamethoxazole-trimethoprim [Bactrim DS] 800-160 mg tablet 1 tab PO BID 5 Days Qty: 10 RF: 0 meclizine 12.5 mg tablet 25 mg PO TID PRN (Reason: dizziness) 7 Days RF: 0 Referrals: Miscellaneous,Doctor, MD [Primary Care Provider] -
[2020-12-31] MEDS: MECLIZINE HCL 12.5 MG TABLET 25 MG PO (15:04)
[2020-12-31 15:27] LABS: COVID19 -Nasal RAPID Negative (Negative)
--- NOTE | 2020-12-31 16:29 | PC.NURSE ---
Pt reports improvement in symptoms, appears in less distress compared to arrival. Denies nausea at this time.
== END 2020-12-31 16:55 | disposition home or self-care (01) ==
PROVIDERS: Emergency Medicine; Emergency Provider Student in an Organized Health Care Education/Training Program
DX: R42 Dizziness and giddiness (principal); R11.2 Nausea with vomiting, unspecified; Z20.822 Contact with and (suspected) exposure to COVID-19
CPT/HCPCS: 36415; 71046; 80053; 81003; 84484; 85025; 87635; 93005; 93010; 96361; 96374; 99284; C9803; J2405